=== PATIENT | female | born 1965 | race Caucasian/White ===

== ENCOUNTER 2018-01-23 07:18 | Emergency (ER) | payer OTHER, BC, MEDICAID ==
[2018-01-23] MEDS: HYDROmorphone 2 MG/ML Syringe SUBCUT ONE (07:33)
[2018-01-23] MEDS ORDERED: Silver Sulfadiazine 1% Crm 50 GM Tube TOP ONE (08:00)
[2018-01-23] MEDS: HYDROmorphone 4 MG/ML Syringe ONE (08:06)
--- NOTE | 2018-01-23 14:54 | ER ---
DATE OF SERVICE: 01/23/2018. HISTORY OF PRESENT ILLNESS: A 52-year-old lady who comes in after burning her right hand at work. She works at [employer] and she burned it while changing some hot oil. She has been holding an ice pack to the area. She states that the pain is quite intense. She states that the area that was burnt did blister up right away. She denies any other areas of injury. CURRENT MEDICATIONS: Include levothyroxine and Detrol LA. ALLERGIES: IBUPROFEN. OBJECTIVE: GENERAL APPEARANCE: The patient is awake and alert. She is uncomfortable because of the pain. She has an ice pack applied to the right hand. Examining the right hand reveals the area that is burnt over the dorsal aspect of the index finger, of the middle finger, and ring finger, proximal third of the fingers radiating up to the knuckle area. These are all second-degree haro. The blisters have all drained and the skin is actually still intact. There is no weeping or drainage at this time. DIAGNOSIS: Second-degree haro to right hand involving 3 fingers. TREATMENT PLAN: Dilaudid 2 mg was given subcu for pain control. We had the patient soak her hand in some ice water for about 10 minutes and her pain came down to 3/10. At this point, nursing staff will apply dressing involving Silvadene cream, gauze, and Lacey. The patient is to go home. She is to take the rest of the day off. She is to use Tylenol for pain control. She is to change the dressing once a day more often if soiled or dirty and she is to monitor closely for infection. She is to keep the site covered for 4 to 5 days. The patient has no further questions. Followup is p.r.n. JOSE/JELENAL /[id number]
== END 2018-01-23 08:09 | disposition home or self-care (01) ==
LOC: LB.ED 07:18
DX: T23.231A Burn of second degree of multiple right fingers (nail), not including thumb, initial encounter (principal); X10.2XXA Contact with fats and cooking oils, initial encounter; Y93.89 Activity, other specified; Y92.511 Restaurant or cafe as the place of occurrence of the external cause; Y99.0 Civilian activity done for income or pay
CPT/HCPCS: 16020; 96372; 99283-25; A9270-GY; J1170

== ENCOUNTER 2019-01-12 09:44 | Emergency (ER) | payer BC, MEDICAID ==
[2019-01-12 09:57] VITALS: BP 143/82
[2019-01-12] MEDS ORDERED: HYDROmorphone 2 MG/ML SDV IM ONE (10:12)
[2019-01-12] MEDS: Ondansetron 4 MG Tab.DIS PO ONE ×2 (10:17→10:44)
[2019-01-12] MEDS ORDERED: Ondansetron 4 MG Tab.DIS ONE ×2 (10:19→10:50)
[2019-01-12] MEDS ORDERED: HYDROmorphone 2 MG/ML Syringe ONE (10:19)
--- NOTE | 2019-01-12 10:35 | EDM.PDOC ---
ED HPI GENERAL MEDICAL PROBLEM - General Chief Complaint: Headache Stated Complaint: headache Time Seen by Provider: 01/12/19 10:00 Source of Information: Reports: Patient History Limitations: Reports: No Limitations - History of Present Illness INITIAL COMMENTS - FREE TEXT/NARRATIVE: According to patient she claims that she woke up around 6:30 am today and had a dull left sided headache. headache ache was radiating from her left occiput to the frontal region. Pain has gradually turned from dull ache to throbbing now. No nausea or vomiting. + photophobia and phonophobia. No weakness, tingling or numbness int he extremities. No other complaints. Pt claims she fell on 12/23/18 and hit the back of her head hard on the concrete floor at work, since then she has had daily headaches and dizzy on and off. But her headache today has been the worse she claims. Pt claims she h\\did not have scan of her head when she fell. No other complaints. Onset: Today Onset Date: 01/12/19 Onset Time: 06:30 Duration: Getting Worse Location: Reports: Head Quality: Reports: Ache Severity: Severe Improves with: Reports: None Worsens with: Reports: None Associated Symptoms: Reports: Headaches. Denies: Confusion, Chest Pain, Cough, Diaphoresis, Fever/Chills, Nausea/Vomiting, Rash, Seizure, Shortness of Breath, Syncope, Weakness - Related Data Allergies Allergy/AdvReac Type Severity Reaction Status Date / Time ibuprofen Allergy Chest Pain Verified 09/13/16 08:10 Home Meds: Home Meds Levothyroxine Sodium [Levoxyl] 50 mcg PO DAILY 11/09/14 [History] Tolterodine Tartrate [Detrol LA] 2 mg PO DAILY 11/09/14 [History] Past Medical History HEENT History: Reports: Impaired Vision Cardiovascular History: Reports: None Other Cardiovascular History: chest pain alergic reaction to IBP Respiratory History: Reports: None Other Genitourinary History: overactive bladder 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 OA B knees Other Psychiatric History: worked through low times Endocrine/Metabolic History: Reports: None, Hyperthyroidism Oncologic (Cancer) History: Reports: None - Past Surgical History Other GI Surgeries/Procedures: hyperactive bladder Other Neurological Surgeries/Procedures: right LE sensation changes: "the whole leg", pm after activity Other Musculoskeletal Surgeries/Procedures:: R knee scope Social & Family History - Family History Family Medical History: Noncontributory - Tobacco Use Smoking Status *Q: Never Smoker - Caffeine Use Caffeine Use: Reports: Soda - Recreational Drug Use Recreational Drug Use: No ED ROS GENERAL - Review of Systems Review Of Systems: See Below Constitutional: Denies: Fever, Chills, Malaise, Weakness HEENT: Reports: Vision Change (photophobia). Denies: Ear Pain, Rhinitis, Throat Pain, Throat Swelling, Vertigo Respiratory: Denies: Cough, Sputum Cardiovascular: Denies: Chest Pain, Lightheadedness GI/Abdominal: Denies: Abdominal Pain, Constipation, Diarrhea, Nausea, Vomiting : Denies: Frequency, Urgency Musculoskeletal: Denies: Joint Pain, Joint Swelling Skin: Denies: Bruising, Pruritis, Rash Neurological: Denies: Confusion, Dizziness, Headache, Numbness, Tingling ED EXAM, GENERAL - Physical Exam Exam: See Below Exam Limited By: No Limitations General Appearance: Alert, WD/WN, Moderate Distress Ears: Normal External Exam, Normal Canal, Hearing Grossly Normal, Normal TMs Ear Exam: Bilateral Ear: Auricle Normal, Canal Normal, TM normal Nose: Normal Inspection, Normal Mucosa, No Blood Throat/Mouth: Normal Inspection, Normal Lips, Normal Teeth, Normal Gums, Normal Oropharynx, Normal Voice, No Airway Compromise Head: Atraumatic, Normocephalic Neck: Normal Inspection, Supple, Non-Tender, Full Range of Motion Respiratory/Chest: No Respiratory Distress, Lungs Clear, Normal Breath Sounds, No Accessory Muscle Use, Chest Non-Tender Cardiovascular: Normal Peripheral Pulses, Regular Rate, Rhythm, No Edema, No Gallop, No JVD, No Murmur, No Rub Extremities: Normal Inspection, Normal Range of Motion, Non-Tender, Normal Capillary Refill, No Pedal Edema Neurological: Alert, Oriented, CN II-XII Intact, Normal Cognition, Normal Gait, Normal Reflexes, No Motor/Sensory Deficits Skin Exam: Warm, Intact Course - Vital Signs Text/Narrative:: Pt appears like she has acute migraine headache, which has started today. She did receive Dilaudid 2mg IM with Zofran ODT 8mg PO in the emergency room. As she has had a recent fall and has daily headaches and claims this has been the worse headache of her life, I did get CyT of the head, which appears normal. Pt reassured that this might be migraine episodes. She rates her Headache at 4/10 now which is improving. Advised to rest in dark room for few hours and the headache should abort. If she has recurrent migraines , should followup in the clinic for further workup and management. Last Recorded V/S: Last Vital Signs Temp 97 F 01/12/19 09:56 Pulse 57 L 01/12/19 09:56 Resp 16 01/12/19 09:56 BP 143/82 H 01/12/19 09:56 Pulse Ox 100 01/12/19 09:56 - Orders/Labs/Meds Orders: Active Orders 24 hr Category Date Time Status Head wo Cont [CT] Stat Exams 01/12/19 10:11 Ordered HYDROmorphone [Dilaudid] Med 01/12/19 10:12 Once 2 mg IM ONETIME ONE Ondansetron [Zofran ODT] Med 01/12/19 10:13 Once 4 mg PO ONETIME ONE Medication Orders Hydromorphone HCl (Dilaudid) 2 mg IM ONETIME ONE Stop: 01/12/19 10:13 Meds: Medications Generic Name Dose Route Start Last Admin Trade Name Nena PRN Reason Stop Dose Admin Hydromorphone HCl 2 mg 01/12/19 10:12 Dilaudid IM 01/12/19 10:13 ONETIME ONE Departure - Departure Time of Disposition: 11:00 Disposition: Home, Self-Care 01 Condition: Fair Clinical Impression: Migraine - Discharge Information *PRESCRIPTION DRUG MONITORING PROGRAM REVIEWED*: Not Applicable *COPY OF PRESCRIPTION DRUG MONITORING REPORT IN PATIENT NIKOS: Not Applicable Referrals: PCP,None [Primary Care Provider] - Additional Instructions: Pt appears like she has acute migraine headache, which has started today. She did receive Dilaudid 2mg IM with Zofran ODT 8mg PO in the emergency room. As she has had a recent fall and has daily headaches and claims this has been the worse headache of her life, I did get CyT of the head, which appears normal. Pt reassured that this might be migraine episodes. She rates her Headache at 4/10 now which is improving. Advised to rest in dark room for few hours and the headache should abort. If she has recurrent migraines , should followup in the clinic for further workup and management. - Problem List & Annotations (1) Migraine SNOMED Code(s): 23179164 Code(s): G43.909 - MIGRAINE, UNSP, NOT INTRACTABLE, WITHOUT STATUS MIGRAINOSUS Status: Acute Current Visit: Yes - Problem List Review Problem List Initiated/Reviewed/Updated: Yes - My Orders Last 24 Hours: My Active Orders 01/12/19 10:11 Head wo Cont [CT] Stat 01/12/19 10:12 HYDROmorphone [Dilaudid] 2 mg IM ONETIME ONE 01/12/19 10:13 Ondansetron [Zofran ODT] 4 mg PO ONETIME ONE - Assessment/Plan Last 24 Hours: My Active Orders 01/12/19 10:11 Head wo Cont [CT] Stat 01/12/19 10:12 HYDROmorphone [Dilaudid] 2 mg IM ONETIME ONE 01/12/19 10:13 Ondansetron [Zofran ODT] 4 mg PO ONETIME ONE Assessment:: Migraine headche Plan: Pt appears like she has acute migraine headache, which has started today. She did receive Dilaudid 2mg IM with Zofran ODT 8mg PO in the emergency room. As she has had a recent fall and has daily headaches and claims this has been the worse headache of her life, I did get CyT of the head, which appears normal. Pt reassured that this might be migraine episodes. She rates her Headache at 4/10 now which is improving. Advised to rest in dark room for few hours and the headache should abort. If she has recurrent migraines , should followup in the clinic for further workup and management.
[2019-01-12] MEDS ORDERED: Ondansetron 4 MG Tab.DIS PO PRN (10:45)
--- NOTE | 2019-01-13 14:39 | CT ---
Date of Service: 01/12/19 Clinical Data: UNENHANCED BRAIN CT: Multislice acquisition through the brain without IV contrast was performed. No priors. No masses or mass effect. No intracranial hemorrhage. No evidence of acute or subacute infarct No osseous abnormalities. IMPRESSION: No acute intracranial abnormalities. [id number] [facility]
== END 2019-01-12 10:55 | disposition home or self-care (01) ==
LOC: LB.ED 09:44
DX: G43.909 Migraine, unspecified, not intractable, without status migrainosus (principal); Z88.6 Allergy status to analgesic agent; Z79.899 Other long term (current) drug therapy
CPT/HCPCS: 70450; 96372; 99284; A9270; J1170

== ENCOUNTER 2019-09-28 06:36 | Emergency (ER) | payer BC ==
[2019-09-28 06:57] VITALS: BP 145/75; PULSE 57
[2019-09-28] MEDS ORDERED: Acetaminophen 500 MG Tab ONE (07:21)
[2019-09-28] MEDS ORDERED: Acetaminophen 500 MG Tab PO ONE (07:54)
--- NOTE | 2019-09-28 09:09 | ER ---
HISTORY OF PRESENT ILLNESS: A 54-year-old lady here with complaints of a sore throat that she has had for the last couple of days. She states it hurts when she swallows. She has not had any problems with fever, coughing, nausea, or vomiting and she has not had any issues with headaches. She has been taking Tylenol on a p.r.n. basis. OBJECTIVE: GENERAL APPEARANCE: The patient is awake and alert. No obvious distress. VITAL SIGNS: Reviewed. The patient is afebrile. Blood pressure 145/75. HEENT: Ears: TMs are dull and normal in appearance. Nares are patent. Oral mucous membranes moist. Posterior pharynx shows minimal drainage and redness. The patient does not have maxillary or frontal sinus tenderness with palpation. NECK: Supple. LUNGS: Clear. SKIN: Warm and dry. LAB AND X-RAY STUDIES: Strep ID is negative. DIAGNOSIS: Pharyngitis, viral in nature. TREATMENT PLAN: Conservative measures were discussed. She is to gargle with warm salt water. She is to have Tylenol regularly and she is to push fluids. I gave her slip to be off today and possibly tomorrow from work and followup as p.r.n. CRS/MODL /[id number]
== END 2019-09-28 07:40 | disposition home or self-care (01) ==
LOC: LB.ED 06:36
DX: J02.8 Acute pharyngitis due to other specified organisms (principal)
CPT/HCPCS: 87430; 99283; A9270-GY

== ENCOUNTER 2021-08-09 16:12 | Emergency (ER) | payer BC ==
[2021-08-09 16:35] VITALS: BP 170/100; PULSE 68
--- NOTE | 2021-08-09 17:25 | EDM.PDOC ---
ED HPI GENERAL MEDICAL PROBLEM - General Chief Complaint: Lower Extremity Injury/Pain Stated Complaint: KNEE PAIN Time Seen by Provider: 08/09/21 16:30 Source of Information: Reports: Patient History Limitations: Reports: No Limitations - History of Present Illness INITIAL COMMENTS - FREE TEXT/NARRATIVE: This patient presents to the emergency department for evaluation of bilateral knee pain. She states that she has had this for many years and that she is "[id number]." She states this most recent episode began a couple of days ago and she did use Tylenol once. She has been told in the past that she would need knee replacement surgery but has not followed up on that with an carpentry specialist. She refuses to take anti-inflammatory medications because she was told many years ago it would make her heart "tight". 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 She is also extremely obese with a BMI at 50. She denies any trauma, new injuries to her knees, other injuries or concerns. 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 OA B knees Psychiatric History: Reports: Anxiety Other Psychiatric History: worked through low times Endocrine/Metabolic History: Reports: Hyperthyroidism Oncologic (Cancer) History: Reports: None - Past Surgical History Other HEENT Surgeries/Procedures: patient with glasses on Other GI Surgeries/Procedures: hyperactive bladder Other Neurological Surgeries/Procedures: right LE sensation changes: "the whole leg", pm after activity Other Musculoskeletal Surgeries/Procedures:: R knee scope Social & Family History - Family History Family Medical History: No Pertinent Family History - Tobacco Use Tobacco Use Status *Q: Never Tobacco User Second Hand Smoke Exposure: No - Caffeine Use Caffeine Use: Reports: Coffee - Recreational Drug Use Recreational Drug Use: No Review of Systems - Review of Systems Review Of Systems: Comprehensive ROS is negative, except as noted in HPI. ED EXAM, GENERAL - Physical Exam Exam: See Below Exam Limited By: No Limitations General Appearance: Alert, No Apparent Distress, Other (Extreme obesity) Eye Exam: Bilateral Eye: PERRL Ears: Normal External Exam Nose: Normal Inspection Head: Atraumatic, Normocephalic Neck: Normal Inspection, Full Range of Motion Respiratory/Chest: No Respiratory Distress, No Accessory Muscle Use Extremities: Normal Inspection, Other (No discoloration or deformity noted in either knee. It is difficult to assess presence of edema; however, patient states she does not have edema today. Distal CMS is intact.) Course - Vital Signs Last Recorded V/S: Last Vital Signs Temp 36.4 C 08/09/21 16:28 Pulse 68 08/09/21 16:28 Resp 18 08/09/21 16:28 BP 170/100 H 08/09/21 16:28 Pulse Ox 98 08/09/21 16:28 - Re-Assessments/Exams Free Text/Narrative Re-Assessment/Exam: This patient presents to the emergency department for evaluation of bilateral knee pain. She has used minimal [id number] medications and refuses to use nonsteroidal anti-inflammatories despite ever having a adverse reaction to them. She states that she does not like to take medications, however, does ask for more medications for her pain. She has not sustained any trauma therefore x-rays are not necessary due to the low likelihood of a fracture or subluxation. Advanced imaging with CT or MRI is not indicated at this time but may be indicated in the future if symptoms fail to resolve. It is recommended that she follow-up with carpentry specialist to have evaluation for possible replacement. She was also encouraged to use nonsteroidal anti-inflammatories in addition to her Tylenol, placement of ice, and rest throughout the day. She was offered crutches, knee sleeves, and other supportive strategies but she did refuse them all. She was instructed to follow-up with her primary care provider as needed. The patient was stable at the time of discharge. 08/09/21 17:26 08/09/21 17:28 Departure - Departure Time of Disposition: 17:00 Disposition: Home, Self-Care 01 Condition: Fair Clinical Impression: Chronic knee pain - Discharge Information Referrals: Yazmin Briceno NP [Primary Care Provider] - Forms: ED Department Discharge Sepsis Event Note (ED) - Evaluation Sepsis Screening Result: No Definite Risk - Focused Exam Vital Signs: Vital Signs Temp Pulse Resp BP Pulse Ox 08/09/21 16:28 36.4 C 68 18 170/100 H 98
== END 2021-08-09 16:53 | disposition home or self-care (01) ==
LOC: LB.ED 16:12
DX: G89.29 Other chronic pain (principal); M25.561 Pain in right knee; M25.562 Pain in left knee; E05.90 Thyrotoxicosis, unspecified without thyrotoxic crisis or storm; Z88.8 Allergy status to other drugs, medicaments and biological substances
CPT/HCPCS: 99283

== ENCOUNTER 2022-07-12 08:00 | Emergency (ER) | payer BC | END 2022-07-13 06:35 | disposition home or self-care (01) | LOC: LB.ED 08:00 | DX: N39.0 Urinary tract infection, site not specified (principal); F41.9 Anxiety disorder, unspecified | CPT/HCPCS: 99284 ==

== ENCOUNTER 2022-07-28 09:59 | Day surgery (SDC) | payer BC ==
[~2022-07-28 09:59] MED LIST: Metoclopramide 10 MG/2 ML SDV IV PRN; Sodium Chloride 0.9% 1,000 ML IV SCH
[2022-07-28 14:55] VITALS: BP 158/77; PULSE 83
== END 2022-07-28 13:25 | disposition home or self-care (01) ==
LOC: LB.SDS 09:59
PROVIDERS: ATTEND Surgery
DX: Z12.11 Encounter for screening for malignant neoplasm of colon (principal); K57.30 Diverticulosis of large intestine without perforation or abscess without bleeding; F41.9 Anxiety disorder, unspecified; E66.01 Morbid (severe) obesity due to excess calories; N32.89 Other specified disorders of bladder; Z80.0 Family history of malignant neoplasm of digestive organs; Z68.43 Body mass index [BMI] 50.0-59.9, adult
CPT/HCPCS: 45330; J2704; J7030

== ENCOUNTER 2022-08-02 06:34 | Emergency (ER) | payer BC ==
[2022-08-02] MEDS ORDERED: Ondansetron 4 MG Tab.DIS PO ONE (07:09)
[2022-08-02] MEDS ORDERED: Loperamide 2 MG Cap PO ONE (07:09)
[2022-08-02 07:10] VITALS: BP 151/93; PULSE 86
== END 2022-08-02 07:38 | disposition home or self-care (01) ==
LOC: LB.ED 06:34
DX: R19.7 Diarrhea, unspecified (principal); Z79.899 Other long term (current) drug therapy
CPT/HCPCS: 99283; A9270; Q0162

== ENCOUNTER 2023-05-13 09:59 | Emergency (ER) | payer BC ==
[2023-05-13 10:24] VITALS: BP 165/99; PULSE 60
[2023-05-13] MEDS: Ketorolac 60 MG/2 ML SDV IM ONE (10:33)
[2023-05-13] MEDS: Orphenadrine 60 MG/2 ML Inj IM ONE (10:47)
[2023-05-13] MEDS: Orphenadrine 60 MG/2 ML Inj ONE (10:51)
[2023-05-13] MEDS: Diazepam 10 MG Tab PO ONE (10:51)
[2023-05-13] MEDS: Diazepam 5 MG Tab ONE (10:51)
[2023-05-13] MEDS ORDERED: Cyclobenzaprine 10 MG Tab ONE (11:00)
== END 2023-05-13 11:23 | disposition home or self-care (01) ==
LOC: LB.ED 09:59
DX: M54.50 Low back pain, unspecified (principal); M54.9 Dorsalgia, unspecified; G89.29 Other chronic pain; E03.9 Hypothyroidism, unspecified; Z79.899 Other long term (current) drug therapy
CPT/HCPCS: 96372; 99283; A9270-GY; J1885; J2360

== ENCOUNTER 2024-10-06 05:11 | Emergency (ER) | payer BC ==
[2024-10-06] MEDS: Ketorolac 15 MG/ML SDV IVPUSH ONE (05:35)
[2024-10-06] MEDS: HYDROmorphone 1 MG/ML Syringe IVPUSH ONE (05:52)
[2024-10-06] MEDS: HYDROmorphone 2 MG/ML Syringe ONE (05:53)
[2024-10-06] MEDS: Midazolam 1 MG/ML 5 ML SDV IVPUSH ONE (06:05)
[2024-10-06] MEDS: Midazolam 1 MG/ML 2 ML SDV IVPUSH ONE (06:15)
[2024-10-06] MEDS ORDERED: Acetaminophen/oxyCODONE 325-5 MG Tab ONE (07:00)
[2024-10-06 08:17] VITALS: BP 140/55; PULSE 60
== END 2024-10-06 07:15 | disposition home or self-care (01) ==
LOC: LB.ED 05:11
DX: S53.005A Unspecified dislocation of left radial head, initial encounter (principal); E03.9 Hypothyroidism, unspecified; Z79.890 Hormone replacement therapy; Z79.899 Other long term (current) drug therapy; W00.0XXA Fall on same level due to ice and snow, initial encounter
CPT/HCPCS: 24600; 29105; 73070-LT; 96374; 96375; 99283-25; 99284; A0425; A0429; A9270-GY; J1171; J1885; J2250

== ENCOUNTER 2025-03-08 13:07 | Emergency (ER) | payer MEDICAID ==
[2025-03-08] MEDS: HYDROmorphone 1 MG/ML Syringe IM ONE (13:48)
[2025-03-08] MEDS ORDERED: Acetaminophen/oxyCODONE 325-5 MG Tab ONE (14:30)
[2025-03-08 15:57] VITALS: PULSE 80
[2025-03-08 15:58] VITALS: BP 145/84
== END 2025-03-08 14:55 | disposition home or self-care (01) ==
LOC: LB.ED 13:07
DX: S42.212A Unspecified displaced fracture of surgical neck of left humerus, initial encounter for closed fracture (principal); E66.9 Obesity, unspecified; E03.9 Hypothyroidism, unspecified; Z88.8 Allergy status to other drugs, medicaments and biological substances; Z68.44 Body mass index [BMI] 60.0-69.9, adult; W19.XXXA Unspecified fall, initial encounter; Y92.009 Unspecified place in unspecified non-institutional (private) residence as the place of occurrence of the external cause
CPT/HCPCS: 73030-LT; 73060-LT; 73090-LT; 96372; 99283; A9270-GY; J1171

== ENCOUNTER 2025-03-28 09:24 | Emergency (ER) | payer MEDICAID ==
[2025-03-28 11:03] LABS: BASOPHILS ABSOLUTE AUTO 0.02 K/uL (0.02-0.10); BASOPHILS PERCENT AUTO 0.3 % (0.0-0.5); EOSINOPHILS ABSOLUTE AUTO 0.12 K/uL (0.04-0.40); HEMATOCRIT 34.3 % (37.0-47.0); HEMOGLOBIN 11.2 g/dL (11.5-16.5); LYMPHOCYTES ABSOLUTE AUTO 1.46 K/uL (1.50-4.00); LYMPHOCYTES PERCENT AUTO 24.7 % (20.0-40.0); MEAN CORPUSCULAR HEMOGLOBIN 32.4 pg (27.0-32.0); MEAN CORPUSCULAR HGB CONC 32.7 g/dL (31.0-35.0); MEAN CORPUSCULAR VOLUME 99 fL (76-96); MEAN PLATELET VOLUME 9.6 fL (6.0-10.0); MONOCYTES ABSOLUTE AUTO 0.46 K/uL (0.20-0.80); MONOCYTES PERCENT AUTO 7.8 % (3.0-10.0); NEUTROPHILS ABSOLUTE AUTO 3.86 K/uL (2.00-7.50); NEUTROPHILS PERCENT AUTO 65.2 % (45.0-70.0); PLATELET COUNT,PLT 274 K/uL (150-500); RED BLOOD CELL COUNT 3.46 M/uL (3.80-5.80); RED CELL DISTRIBUTION WIDTH 14.3 % (11.0-16.0); WHITE BLOOD CELL COUNT,WBC 5.9 K/uL (4.0-11.0)
[2025-03-28 11:32] VITALS: PULSE 70
[2025-03-28 11:33] VITALS: BP 151/88
[2025-03-28 11:35] LABS: ALBUMIN 3.7 g/dL (3.4-5.0); ANION GAP 9.2 mmol/L (5.0-15.0); BILIRUBIN TOTAL 1.6 mg/dL (0.0-1.0); BUN/CREATININE RATIO 10.6 (6-25); CALCIUM 9.2 mg/dL (8.5-10.1); CREATININE 0.85 mg/dL (0.55-1.02); EST CRCL DRUG DOSING (CG) 62.54 mL/min; POTASSIUM,K 3.2 mmol/L (3.5-5.1); PROTEIN TOTAL,TP 7.3 g/dL (6.4-8.2)
== END 2025-03-28 11:22 ==
LOC: LB.ED 09:24
DX: S02.5XXA Fracture of tooth (traumatic), initial encounter for closed fracture (principal); S42.292D Other displaced fracture of upper end of left humerus, subsequent encounter for fracture with routine healing; I87.2 Venous insufficiency (chronic) (peripheral); E55.9 Vitamin D deficiency, unspecified; K05.10 Chronic gingivitis, plaque induced; N39.46 Mixed incontinence; M17.0 Bilateral primary osteoarthritis of knee; E03.9 Hypothyroidism, unspecified; Z88.6 Allergy status to analgesic agent; Z79.890 Hormone replacement therapy; Z79.899 Other long term (current) drug therapy; X58.XXXA Exposure to other specified factors, initial encounter
CPT/HCPCS: 36415; 80053; 84443; 85025; 99283